=== PATIENT | female | born 1965 | race Caucasian/White ===

== ENCOUNTER 2017-12-11 03:08 | Emergency (ER) | payer OTHER ==
[~2017-12-11] VITALS: Ht 172.7 cm; Wt 47.6 kg
[2017-12-11 03:16] VITALS: BP 138/91
[2017-12-11 03:34] LABS: URINE BILIRUBIN NEGATIVE (Negative); URINE BLOOD 3+ (Negative); URINE CLARITY TURBID; URINE COLOR RED; URINE GLUCOSE-RANDOM* TRACE (Negative); URINE KETONES TRACE (Negative); URINE LEUKOCYTES-REFLEX 2+ (Negative); URINE NITRITE-REFLEX POSITIVE (Negative); URINE PROTEIN (DIPSTICK) 3+ (Negative); URINE SPECIFIC GRAVITY 1.025 (1.005-1.035)
[2017-12-11 03:35] LABS: BACTERIA-REFLEX 1-9 Few /HPF (None Seen); CASTS None Seen /LPF (None Seen); CRYSTALS None Seen /LPF (None Seen); SQUAMOUS None Seen /LPF (0-3); URINE RBC >20 Many /HPF (0-2)
[2017-12-11] MEDS ORDERED: BACTRIM DS TAB1 EACH PO (03:51)
[2017-12-11] MEDS ORDERED: PYRIDIUM200 MG PO (03:51)
== END 2017-12-11 04:10 | disposition home or self-care (01) ==
LOC: ER 03:08 → EDBD 03:08 → ER 04:10
PROVIDERS: Emergency Medicine
DX: N30.91 Cystitis, unspecified with hematuria (principal)